=== PATIENT | female | born 1985 | race Two or more races ===

== ENCOUNTER 2016-10-15 09:11 | Emergency (ER) | payer MEDICAID ==
[~2016-10-15] VITALS: Ht 157.5 cm; Wt 49.9 kg
[2016-10-15 10:01] VITALS: BP 104/65
== END 2016-10-15 10:30 | disposition home or self-care (01) ==
LOC: ER 09:11
DX: S39.012A Strain of muscle, fascia and tendon of lower back, initial encounter (principal); X58.XXXA Exposure to other specified factors, initial encounter; Y93.89 Activity, other specified; Y99.9 Unspecified external cause status; Y92.89 Other specified places as the place of occurrence of the external cause
CPT/HCPCS: 81025; 99283; J7030

== ENCOUNTER 2018-12-08 16:52 | Emergency (ER) | payer MEDICAID ==
[~2018-12-08] VITALS: Ht 157.5 cm; Wt 54.4 kg
[2018-12-08 17:03] VITALS: BP 114/68
[2018-12-08 17:34] LABS: Urine Bacteria NONE SEEN /hpf (None Seen); Urine Blood 1+ /uL (Negative); Urine Mucus FEW (None Seen); Urine Specific Gravity 1.023 (1.001-1.035); Urine WBC <1 /hpf (0 - 5)
[2018-12-08 17:58] LABS: Basophils # (auto) 0.1 uL; Basophils % (auto) 0.7 % (0.0-2.0); Eosinophils # (auto) 0.3 uL; Eosinophils % (auto) 4.5 % (0.0-7.0); Hematocrit 37.1 % (36.0-46.0); Hemoglobin 12.1 g/dL (12.2-16.2); Lymphocytes # (auto) 2.3 uL; Mean Corpuscular Hemoglobin 28.3 pg (28.0-32.0); Mean Corpuscular Hgb Conc. 32.6 g/dL (32.0-36.0); Mean Corpuscular Volume 86.9 fL (80.0-100.0); Monocytes # (auto) 0.6 uL; Monocytes % (auto) 8.6 % (0.0-12.0); Neutrophils # (auto) 4.1 uL; Neutrophils % (auto) 55.2 % (37.0-80.0); Nucleated Red Blood Cells % 0.1 %; Platelet Count (auto) 322 10^3/uL (140-450); Red Blood Cells 4.27 10^6/uL (4.0-5.20); Red Cell Distribution Width 13.9 % (11.8-14.3); White Blood Cell 7.4 10^3/uL (4.4-10.8)
[2018-12-08 18:14] LABS: Albumin 3.4 g/dL (3.4-5.0); BUN/Creatinine Ratio 18.8; Calcium 8.6 mg/dL (8.5-10.1); Magnesium 2.2 mg/dL (1.6-2.6); Potassium 3.9 mmol/L (3.5-5.1)
[2018-12-08 18:17] LABS: Bilirubin, Total 0.2 mg/dL (0.2-1.0); Total Protein 7.3 g/dL (6.4-8.2)
== END 2018-12-09 04:27 | disposition home or self-care (01) ==
LOC: ER 16:52
DX: K58.9 Irritable bowel syndrome, unspecified (principal); K30 Functional dyspepsia
CPT/HCPCS: 36415; 74176; 80053; 81001; 81025; 82150; 83690; 83735; 85025

== ENCOUNTER 2025-09-19 09:45 | Inpatient (IN) | payer MEDICAID ==
[~2025-09-19] VITALS: Ht 157.5 cm; Wt 65.6 kg
--- NOTE | 2025-09-19 10:18 | ECG ---
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
--- NOTE | 2025-09-19 10:27 | ED.PDOC ---
HPI Comments 40-year-old female who presents to the ED with a chief complaint of chest pain onset 1 week. Patient has been experiencing intermittent chest pain for the past week as well as palpitations, LT arm pain, BLE pain, dizziness, nausea, vomiting, shortness of breath. Since this morning around 06:00, chest pain as been constant, described as pressure sensation as well as LT arm pain. Denies headache, fever, chills, fall, injury from a blurred vision, diarrhea, abdominal pain, dysuria, hematuria, recent travel. No other symptoms or modifying factors present at this time. Chief Complaint: Chest Pain Time Seen by MD: 10:10 Primary Care Provider: N/A Reviewed Notes: Medications, Allergies Allergies: Coded Allergies: NO KNOWN ALLERGIES (Unverified , 10/15/16) Information Source: Patient Mode of Arrival: Ambulatory Severity: Moderate Timing: Weeks Duration: Intermittent Prehospital treatment: None Location: Chest (L) Radiation: Arm (L) Quality: Pressure Onset: At Rest Cardiac Risk Factors: None PE Risk Factors: None History of: None Modifying Factors: Nothing Associated Signs and Symptoms: SOB, Palpitations Past Medical History PAST MEDICAL HISTORY: Asthma Surgical History: Hernia Repair DEMAND PLANNER History: No Pertinent DEMAND PLANNER History Family History Family History: Unknown Social History Smoker: Non-Smoker Alcohol: Denies ETOH Use Drugs: Denies Drug Use Lives In: Home Constitutional: denies: chills, diaphoresis, fatigue, fever, malaise, sweats, weakness, others EENTM: denies: blurred vision, double vision, ear bleeding, ear discharge, ear drainage, ear pain, ear ringing, eye pain, eye redness, hearing loss, mouth pain, mouth swelling, nasal discharge, nose bleeding, nose congestion, nose pain, photophobia, tearing, throat pain, throat swelling, voice changes, others Respiratory: reports: shortness of breath; denies: cough, hemoptysis, orthopnea, SOB at rest, SOB with excertion, stridor, wheezing, others Cardiovascular: reports: chest pain, palpitations; denies: dizzy spells, diaphoresis, Dyspnea on exertion, edema, irregular heart beat, left arm pain, lightheadedness, PND, syncope, others Gastrointestinal: denies: abdomen distended, abdominal pain, blood streaked bowels, constipated, diarrhea, dysphagia, difficulty swallowing, hematemesis, melena, nausea, poor appetite, poor fluid intake, rectal bleeding, rectal pain, vomiting, others Genitourinary: denies: abnormal vagina bleeding, burning, dyspareunia, dysuria, flank pain, frequency, hematuria, incontinence, pain, , vagina discharge, urgency, others Neurological: reports: dizziness; denies: fainting, headache, left sided numbness, left sided weakness, numbness, paresthesia, pre-existing deficit, right sided numbness, right sided weakness, seizure, speech problems, tingling, tremors, weakness, others Musculoskeletal: reports: others (BLE pain, LT arm pain); denies: back pain, gout, joint pain, joint swelling, muscle pain, muscle stiffness, neck pain Integumetry: denies: bruises, change in color, change in hair/nails, dryness, laceration, lesions, lumps, rash, wounds, others Allergic/Immunocompromised: denies: Difficulty Healing, Frequent Infections, Hives, Itching, others Hematologic/Lymphatic: denies: anemia, blood clots, easy bleeding, easy bruising, swollen glands, others Endocrine: denies: excessive hunger, excessive sweating, excessive thirst, excessive urination, flushing, intolerance to cold, intolerance to heat, unexplained weight gain, unexplained weight loss, others Psychiatric: denies: anxiety, bipolar disorder, depression, hopeless, panic disorder, schizophrenia, sleepless, suicidal, others All Other Systems: Reviewed and Negative Physical Exam General Appearance: No Apparent Distress, Normal HEENT: Normal ENT Inspection, Pharynx Normal, TMs Normal Neck: Full Range of Motion, Non-Tender, Normal, Normal Inspection Respiratory: Chest Non-Tender, Lungs Clear, No Accessory Muscle Use, No Respiratory Distress, Normal Breath Sounds Cardiovascular: No Edema, No JVD, No Murmur, No Gallop, Normal Peripheral Pulses, Regular Rate/Rhythm Breast Exam: Deferred Gastrointestinal: No Organomegaly, Non Tender, No Pulsatile Mass, Normal Bowel Sounds, Soft Genitalia: Deferred Pelvic: Deferred Rectal: Deferred Extremities: No calf tenderness, Normal capillary refill, Normal inspection, Normal range of motion, Non-tender, No pedal edema Musculoskeletal : Apperance: Normal Neurologic: Alert, handtools repairer II-XII nml as Tested, No Motor Deficits, Normal Affect, Normal Mood, No Sensory Deficits Cerebellar Function: Normal Reflexes: Normal Skin: Dry, Normal Color, Warm Lymphatic: No Adenopathy Was a procedure done? Was a procedure done?: No CP Differential Dx Differential Diagnosis: MAT, MA Differential Diagnosis: HTN Essential, HTN Accelerated Differential Diagnosis: Gastritis, Myocardial Infarction X-Ray, Labs, Meds, VS Vital Signs Date Time Temp Pulse Resp B/P (MAP) Pulse Ox O2 Delivery O2 Flow Rate FiO2 09/19/25 13:04 64 09/19/25 12:18 98.6 63 16 116/81 (93) 100 98.6 09/19/25 11:14 69 16 100 Room Air 09/19/25 11:14 98.7 69 16 116/54 (74) 100 98.7 09/19/25 11:08 98.2 09/19/25 10:54 64 09/19/25 09:47 98.1 91 18 137/97 100 98.1 Lab Test 09/19/25 11:20 09/19/25 11:11 09/19/25 10:33 Range/Units Troponin I High Sensitivity < 3 L < 3 L </=34 ng/L Urine Color Yellow Yellow Urine Clarity Clear Clear Urine pH 5.5 5.0-9.0 Urine Specific [place] 1.027 1.001-1.035 Urine Protein Trace H Negative Urine Ketones Negative Negative Urine Blood Negative Negative /uL Urine Nitrite Negative Negative Urine Bilirubin Negative Negative Urine Urobilinogen Normal Negative mg/dL Urine Leukocyte Esterase Negative Negative /uL Urine RBC <1 0 - 4 /hpf Urine Microscopic WBC 1 0-5 /HPF Urine Squamous Epithelial Cells Few <5 /hpf Urine Bacteria None seen None Seen /hpf Urine Mucus Moderate None Seen Urine Glucose Normal Normal mg/dL Urine Test Negative Negative White Blood Count 6.0 4.4-10.8 10^3/uL Red Blood Count 4.22 4.0-5.20 10^6/uL Hemoglobin 8.5 L 12.2-16.2 g/dL Hematocrit 27.8 L 36.0-46.0 % Mean Corpuscular Volume 65.9 L 80.0-100.0 fL Mean Corpuscular Hemoglobin 20.2 L 28.0-32.0 pg Mean Corpuscular Hemoglobin Concent 30.6 L 32.0-36.0 g/dL Red Cell Distribution Width 18.1 H 11.8-14.3 % Platelet Count 494 H 140-450 10^3/uL Mean Platelet Volume 6.9 6.9-10.8 fL Neutrophils (%) (Auto) 55.1 37.0-80.0 % Lymphocytes (%) (Auto) 35.7 10.0-50.0 % Monocytes (%) (Auto) 6.6 0.0-12.0 % Eosinophils (%) (Auto) 1.5 0.0-7.0 % Basophils (%) (Auto) 1.1 0.0-2.0 % Neutrophils # (Auto) 3.3 1.6-8.6 10 ^3/uL Lymphocytes # (Auto) 2.1 0.4-5.4 10 ^3/uL Monocytes # (Auto) 0.4 0-1.3 10 ^3/uL Eosinophils # (Auto) 0.1 0-0.8 10 ^3/uL Basophils # (Auto) 0.1 0-0.2 10 ^3/uL Nucleated Red Blood Cells 0.0 % Sodium Level 142 136-145 mmol/L Potassium Level 3.9 3.5-5.1 mmol/L Chloride Level 106 98-107 mmol/L Carbon Dioxide Level 25 20-31 mmol/L Anion Gap 11 5-15 Blood Urea Nitrogen 10 9-23 mg/dL Creatinine 0.80 0.550-1.02 mg/dL Glomerular Filtration Rate Calc 95 >90 mL/min BUN/Creatinine Ratio 12.5 10.0-20.0 Serum Glucose 95 74-106 mg/dL Calcium Level 8.9 8.7-10.4 mg/dL Current Medications Medications (Trade) Dose Ordered Sig/Ronen Route Start Time Stop Time Status Last Admin Al Hydrox/Mg Hydrox/Simethicone (Maalox Plus) 15 ml ONCE ONCE PO 09/19/25 10:15 09/19/25 10:17 DC 09/19/25 11:07 Ondansetron HCl (Zofran Po) 4 mg ONCE ONCE PO 09/19/25 10:15 09/19/25 10:17 DC 09/19/25 11:09 Acetaminophen (Tylenol Tablet) 650 mg ONCE ONCE PO 09/19/25 10:15 09/19/25 10:17 DC 09/19/25 11:08 Time of 1ST Reevaluation: 10:40 Reevaluation 1ST: Unchanged Patient Education/Counseling: Diagnosis, Treatment, Prognosis Family Education/Counseling: No Family Present SEPSIS Sepsis Screen Date sepsis recognized/suspect: Sep 19, 2025 Time Sepsis recognized/suspect: 948 Recent Procedure: No On Antibiotic Therapy: No Respiratory Rate >20: No Heart Rate >90: Yes Temp<36 C (96.8 F) or >38.3 C: No SBP <90 or MAP <65 mmHG: No New Acute Mental Status Change: No Is the patient on CPAP, BIPAP,: No Physician Orders Chest Portable (09/19/25 10:15) Electrocardigram (09/19/25 13:15) Vital Signs Date Time Temp Pulse Resp B/P (MAP) Pulse Ox O2 Delivery O2 Flow Rate FiO2 09/19/25 13:04 64 09/19/25 12:18 98.6 63 16 116/81 (93) 100 98.6 09/19/25 11:14 69 16 100 Room Air 09/19/25 11:14 98.7 69 16 116/54 (74) 100 98.7 09/19/25 11:08 98.2 09/19/25 10:54 64 09/19/25 09:47 98.1 91 18 137/97 100 98.1 Laboratory Tests Test 09/19/25 10:33 White Blood Count 6.0 10^3/uL (4.4-10.8) Medications Medications Dose Ordered Sig/Ronen Route Start Time Stop Time Status Last Admin Dose Admin Acetaminophen 650 mg ONCE ONCE PO 09/19/25 10:15 09/19/25 10:17 DC 09/19/25 11:08 Al Hydrox/Mg Hydrox/Simethicone 15 ml ONCE ONCE PO 09/19/25 10:15 09/19/25 10:17 DC 09/19/25 11:07 Ondansetron HCl 4 mg ONCE ONCE PO 09/19/25 10:15 09/19/25 10:17 DC 09/19/25 11:09 Departure 1 Departure Time of Disposition: 13:30 (Patient with worsening chest pain likely secondary to severe anemia. Patient also with near-syncope. We will admit patient for further workup and expert consultation) Impression: Primary Impression: Acute chest pain Additional Impressions: Near syncope Symptomatic anemia Disposition: ADMITTED INPATIENT Admit to: Tele Condition: Guarded Critical Care Note Critical Care Time?: No Stability Stability form required: No Heart Score Heart Score: Heart Score Response (Comments) Value History N/A 0 EKG N/A 0 Age N/A 0 Risk Factors N/A 0 Troponin N/A 0 Total 0 I personally scribed for AMA BELLO MD ([email or web address]) on 09/19/25 at 10:27. Electronically submitted by Franci Kinney ([email or web address]). AMA BELLO MD Sep 19, 2025 10:27
[2025-09-19 10:48] LABS: Hemoglobin 8.5 g/dL (12.2-16.2)
[2025-09-19 10:50] LABS: Hematocrit 27.8 % (36.0-46.0); Mean Corpuscular Hemoglobin 20.2 pg (28.0-32.0); Mean Corpuscular Volume 65.9 fL (80.0-100.0); Nucleated Red Blood Cells % 0.0 %
[2025-09-19 10:54] LABS: Chloride 106 mmol/L (98-107); Potassium 3.9 mmol/L (3.5-5.1); Sodium 142 mmol/L (136-145)
[2025-09-19 10:55] LABS: Anion Gap 11 (5-15); Calcium 8.9 mg/dL (8.7-10.4); Carbon Dioxide 25 mmol/L (20-31)
--- NOTE | 2025-09-19 10:55 | ECG ---
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
[2025-09-19 11:00] LABS: BUN/Creatinine Ratio 12.5 (10.0-20.0); Blood Urea Nitrogen 10 mg/dL (9-23); Glucose 95 mg/dL (74-106)
[2025-09-19] MEDS: MAALOX PLUS or MAALOX 30 ML PO ONE ×2 (11:07→15:00)
[2025-09-19] MEDS: ACETAMINOPHEN 325 MG TAB PO ONE (11:08)
[2025-09-19] MEDS: ONDANSETRON ODT 4 MG TAB PO ONE (11:09)
[2025-09-19 12:06] LABS: Urine Protein, UAD TRACE (Negative)
--- NOTE | 2025-09-19 12:43 | DVH ---
CHEST RADIOGRAPH INDICATION: cp TECHNIQUE: Single frontal view of the chest was obtained COMPARISON: None FINDINGS: Lines and Tubes: None Lungs: No focal consolidation. Pleura: No effusion. No pneumothorax. Cardiomediastinal contours: Unremarkable Bones: No acute osseous abnormality. IMPRESSION: 1. No acute cardiopulmonary disease.
--- NOTE | 2025-09-19 13:56 | DVHHPRES ---
History of Present Illness Resident Creating Document: JN CAVANAUGH RESIDENT History of Present Illness Ivory Mcneill, a 40-year-old female with a history of Asthma, GERD /PUD presents to the ED with constant left-sided chest pressure since this morning following a week of intermittent chest pain, palpitations, left arm pain, bilateral leg pain, dizziness, nausea, vomiting, and shortness of breath, without headache, fever, chills, abdominal or urinary symptoms, recent travel, or modifying factors. PMHx: Asthma, GERD /PUD PSHx: inguinal Hernia Repair Family history: Noncontributory to the admission. Social history: nonsmoker, non alcoholic, now on recreational drugs, comes from home. OBGYN: No Pertinent CLINICAL AUDIOLOGIST History , actively menstruating. Review of Systems Constitutional: Yes: Chills; No: Fever, Sweats, Weakness, Malaise, Other Eyes: No: Pain, Vision change, Conjunctivae inflammation, Eyelid inflammation, Other, Redness ENT: No: Ear pain, Ear discharge, Nose pain, Nose discharge, Nose congestion, Mouth pain, Mouth swelling, Throat pain, Throat swelling, Other Respiratory: Pleuritic Pain; No: Cough, Dry, Shortness of breath, SOB with excertion, Wheezing, Hemoptysis, Sputum, Wheezing, Other Cardiovascular: Chest Pain, Palpitations; No: Orthopnea, Paroxysmal Noc. Dyspnea, Edema, Lt Headedness, Other Gastrointestinal: No: Nausea, Vomiting, Abdominal Pain, Diarrhea, Constipation, Melena, Hematochezia, Other Genitourinary: No Dysuria, No Frequency, No Incontinence, No Hematuria, No Retention, No Other Musculoskeletal: arm pain; No: other, neck pain, shoulder pain, back pain, hand pain, leg pain, foot pain Skin: No: Rash, Lesions, Jaundice, Bruising, Other Neurological: No: Weakness, Numbness, Incoordination, Change in speech, Conf usion, Seizures, Other Allergies: Coded Allergies: NO KNOWN ALLERGIES (Unverified , 10/15/16) Exam Vital Signs Vital Signs Date Time Temp Pulse Resp B/P (MAP) Pulse Ox O2 Delivery O2 Flow Rate FiO2 09/19/25 13:33 98.6 68 17 118/82 (94) 100 98.6 09/19/25 11:14 Room Air General Appearance: Alert, Oriented X3, Cooperative, mild distress HEENT: Atraumatic, PERRLA, EOMI, Mucous membr. moist/pink, Other (piercing, multiple tattos. ) Respiratory: Clear to auscultation, Normal air movement, Other (NON reproduciple pain in the intercostals. ) Cardiovascular: Regular rate, Normal S1, Normal S2, No murmurs Abdominal: Normal bowel sounds, Soft, No tenderness, No hepatospenomegaly, No masses Extremities: No clubbing, No cyanosis, No edema, Normal pulses, No tenderness/swelling Skin: No rashes, No breakdown, No significant lesion Neuro: Normal gait, Normal speech, Strength at 5/5 X4 ext, Normal tone, Sensation intact, Cranial nerves 3-12 NL, Reflexes 2+ Psych/Mental Status: Mental status NL, Mood NL Labs/Xrays Labs Test 09/19/25 11:20 09/19/25 11:11 09/19/25 10:33 Range/Units Troponin I High Sensitivity < 3 L </=34 ng/L Urine Color Yellow Yellow Urine Clarity Clear Clear Urine pH 5.5 5.0-9.0 Urine Specific [place] 1.027 1.001-1.035 Urine Protein Trace H Negative Urine Ketones Negative Negative Urine Blood Negative Negative /uL Urine Nitrite Negative Negative Urine Bilirubin Negative Negative Urine Urobilinogen Normal Negative mg/dL Urine Leukocyte Esterase Negative Negative /uL Urine RBC <1 0 - 4 /hpf Urine Microscopic WBC 1 0-5 /HPF Urine Squamous Epithelial Cells Few <5 /hpf Urine Bacteria None seen None Seen /hpf Urine Mucus Moderate None Seen Urine Glucose Normal Normal mg/dL Urine Test Negative Negative White Blood Count 6.0 4.4-10.8 10^3/uL Red Blood Count 4.22 4.0-5.20 10^6/uL Hemoglobin 8.5 L 12.2-16.2 g/dL Hematocrit 27.8 L 36.0-46.0 % Mean Corpuscular Volume 65.9 L 80.0-100.0 fL Mean Corpuscular Hemoglobin 20.2 L 28.0-32.0 pg Mean Corpuscular Hemoglobin Concent 30.6 L 32.0-36.0 g/dL Red Cell Distribution Width 18.1 H 11.8-14.3 % Platelet Count 494 H 140-450 10^3/uL Mean Platelet Volume 6.9 6.9-10.8 fL Neutrophils (%) (Auto) 55.1 37.0-80.0 % Lymphocytes (%) (Auto) 35.7 10.0-50.0 % Monocytes (%) (Auto) 6.6 0.0-12.0 % Eosinophils (%) (Auto) 1.5 0.0-7.0 % Basophils (%) (Auto) 1.1 0.0-2.0 % Neutrophils # (Auto) 3.3 1.6-8.6 10 ^3/uL Lymphocytes # (Auto) 2.1 0.4-5.4 10 ^3/uL Monocytes # (Auto) 0.4 0-1.3 10 ^3/uL Eosinophils # (Auto) 0.1 0-0.8 10 ^3/uL Basophils # (Auto) 0.1 0-0.2 10 ^3/uL Nucleated Red Blood Cells 0.0 % Sodium Level 142 136-145 mmol/L Potassium Level 3.9 3.5-5.1 mmol/L Chloride Level 106 98-107 mmol/L Carbon Dioxide Level 25 20-31 mmol/L Anion Gap 11 5-15 Blood Urea Nitrogen 10 9-23 mg/dL Creatinine 0.80 0.550-1.02 mg/dL Glomerular Filtration Rate Calc 95 >90 mL/min BUN/Creatinine Ratio 12.5 10.0-20.0 Serum Glucose 95 74-106 mg/dL Calcium Level 8.9 8.7-10.4 mg/dL SEPSIS Sepsis Screen Date sepsis recognized/suspect: Sep 19, 2025 Time Sepsis recognized/suspect: 948 Recent Procedure: No On Antibiotic Therapy: No Respiratory Rate >20: No Heart Rate >90: Yes Temp<36 C (96.8 F) or >38.3 C: No SBP <90 or MAP <65 mmHG: No New Acute Mental Status Change: No Is the patient on CPAP, BIPAP,: No Physician Orders Chest Portable (09/19/25 10:15) Electrocardigram (09/19/25 13:15) Admit (09/19/25 13:50) Allergies (09/19/25 13:50) Code Status (09/19/25 13:50) Hydrocodone-Acet 5/325mg Tab ([place] 5/32 (09/19/25 14:00) Ondansetron Hcl (Zofran) (09/19/25 14:00) Docusate Sodium Capsule (Colace Capsule) (09/19/25 14:00) Complete Blood Count (09/20/25 04:00) Comprehensive Metabolic Panel (09/20/25 04:00) Cardiac Diet-2gna,Lofat,Lochol (09/19/25 Dinner) Echo 2d Mode Cardiac Dop (09/19/25 13:50) Condition: Serious (09/19/25 13:50) Acetaminophen Tablet (Tylenol Tablet) (09/19/25 14:00) Morphine Sulfate Injection (09/19/25 14:00) Lovenox 40mg (09/19/25 14:00) Nitroglycerin Sublingual (Ntrostat Subli (09/19/25 14:00) Morphine Sulfate Injection (09/19/25 14:00) Oxygen By Nasal Cannula (09/19/25 13:50) Stat Ekg For Chest Pain (09/19/25 13:50) Notify Md Of Changes From Base (09/19/25 13:50) Law Researcher For 24 Hours (09/19/25 13:50) Emergency Dysrhythmia Protocol (09/19/25 13:50) Rhythm Strips Once Every Shift (09/19/25 13:50) Vital Signs Date Time Temp Pulse Resp B/P (MAP) Pulse Ox O2 Delivery O2 Flow Rate FiO2 09/19/25 13:33 98.6 68 17 118/82 (94) 100 98.6 09/19/25 13:04 64 09/19/25 12:18 98.6 63 16 116/81 (93) 100 98.6 09/19/25 11:14 69 16 100 Room Air 09/19/25 11:14 98.7 69 16 116/54 (74) 100 98.7 09/19/25 11:08 98.2 09/19/25 10:54 64 09/19/25 09:47 98.1 91 18 137/97 100 98.1 Laboratory Tests Test 09/19/25 10:33 White Blood Count 6.0 10^3/uL (4.4-10.8) Medications Medications Dose Ordered Sig/Ronen Route Start Time Stop Time Status Last Admin Dose Admin Acetaminophen 650 mg ONCE ONCE PO 09/19/25 10:15 12/16/25 10:17 DC 09/19/25 11:08 650 MG Al Hydrox/Mg Hydrox/Simethicone 15 ml ONCE ONCE PO 09/19/25 10:15 09/19/25 10:17 DC 09/19/25 11:07 15 ML Ondansetron HCl 4 mg ONCE ONCE PO 09/19/25 10:15 09/19/25 10:17 DC 09/19/25 11:09 4 MG Assessment/Plan Assessment/Plan #Acute onset of chest pain: Possible unstable angina, rule out ACS, telemetry, echo, troponin trending, EKG for changes, Check TSH, BNP. EKG for acute ST-T changes, ESR CRP, ruled out structural versus vascular abnormality. Check UDS. Differential arm blood pressure to rule out dissection. #Asthma: Breathing comfortably on room air, as needed albuterol, viral panel to check. Unlikely in exacerbation. #GERD/PUD: BUN normal, no abdominal tenderness, continue IV PPI along with oral antacids, very well discharge pain could be esophagitis. Avoid caustic/spicy food, lifestyle modification. #Questionable blood loss anemia: Baseline hemoglobin 11-12, presented with a 8.5, possible blood loss with menstruation versus GI blood loss. Further workup needed. Ruled out . #Microcytic anemia: MCV 65.9, RDW 18.1 likely pointing towards chronic iron-d eficiency anemia: Iron panel /ferritin to check. Replenish as needed. Diet: cardiac diet PUD prophylaxis: protonix 40mg IV daily DVT prophylaxis: SCDs Barriers to discharge: Medical diagnosis and management in progress. Patient lives with self / family. Independent/need supportive device/wheelchair/person support for ADL. PT and SW consult as needed. PCP: Grady/ Caleb/Hui Specialist Relevant To Admission: None at the moment. Case discussed with Dr. Ward. Code Status: Full Code. Discussion Regarding goals of care and care plan needed total 27 minutes bedside. Plan discussed with: Patient My Orders Orders - JN CAVANAUGH RESIDENT Procedure Category Date Status Time Admit ADMIT 09/19/25 Verified 13:50 Allergies MARIANA 09/19/25 Verified 13:50 Code Status CODE 09/19/25 Verified 13:50 Hydrocodone-Acet PHA 09/19/25 Verified 5/325mg Tab ([place] 14:00 Ondansetron Hcl PHA 09/19/25 Verified (Zofran) 14:00 Docusate Sodium PHA 09/19/25 Verified Capsule (Colace 14:00 Complete Blood Count LAB 09/20/25 Verified 04:00 Comprehensive LAB 09/20/25 Verified Metabolic Panel 04:00 Cardiac DIET 09/19/25 Verified Diet-2gna,Lofat,Lochol Dinner Echo 2d Mode Cardiac US 09/19/25 Verified DOP 13:50 Condition: Serious MARIANA 09/19/25 Verified 13:50 Acetaminophen Tablet [facility] 09/19/25 Verified (Tylenol Tablet) 14:00 Morphine Sulfate PHA 09/19/25 Verified Injection 14:00 Lovenox 40mg PHA 09/19/25 Verified 14:00 Nitroglycerin [facility] 09/19/25 Verified Sublingual (Ntrostat 14:00 Morphine Sulfate [facility] 09/19/25 Verified Injection 14:00 Oxygen By Nasal RT 09/19/25 Verified Cannula 13:50 Stat Ekg For Chest [facility] 09/19/25 Verified Pain 13:50 Notify Of Changes [facility] 09/19/25 Verified From Base 13:50 Law Researcher For [facility] 09/19/25 Verified 24 Hours 13:50 Emergency Dysrhythmia [facility] 09/19/25 Verified Protocol 13:50 Rhythm Strips Once [facility] 09/19/25 Verified Every Shift 13:50 Date of Service: Sep 19, 2025 Billing Provider: FAVIOLA WARD MD Common Visit Codes: 75388-DRLCMDG INP/OBS CARE (HIGH) Secondary Visit Codes: 10837-[id number] CARE PLAN 30 MINUTES JN CAVANAUGH RESIDENT Sep 19, 2025 13:56
[2025-09-19] MEDS ORDERED: DOCUSATE SOD 100 MG CAP PO PRN (14:00)
[2025-09-19] MEDS ORDERED: NITROGLYCERIN 0.4 MG SL TAB SL PRN (14:00)
[2025-09-19] MEDS ORDERED: HYDROcodone-ACET 5/325MG TAB PO PRN (14:00)
[2025-09-19] MEDS ORDERED: MORPHINE SULFATE 4 MG/ML SYR/VIAL IV PRN ×2 (14:00)
[2025-09-19] MEDS ORDERED: ONDANSETRON HCL 4 MG/2 ML VIAL IV PRN (14:00)
[2025-09-19 14:21] VITALS: BP 110/79; PULSE 68; RESP 18; TEMP 98.1; O2SAT 100
[2025-09-19] MEDS ORDERED: ALBUTEROL SULF 2.5 MG/0.5ML(0.5%) NEB SOLN NEB PRN (15:00)
[2025-09-19] MEDS ORDERED: MAALOX PLUS or MAALOX 30 ML PO PRN (15:00)
[2025-09-19] MEDS: ENOXAPARIN SOD 40 MG/0.4 ML SYRINGE SC SCH (15:03)
[2025-09-19] MEDS ORDERED: OMEP1CAP70 PO (15:23)
[2025-09-19 15:29] VITALS: O2SAT 100
[2025-09-19 15:30] VITALS: BP 118/82; PULSE 68; RESP 17; TEMP 98.6; O2SAT 100
[2025-09-19 16:19] LABS: Iron 19.0 ug/dL (50-170)
[2025-09-19 16:19] LABS: Alanine Aminotransferase 12 U/L (7-40); Albumin 4.4 g/dL (3.2-4.8); Alkaline Phosphatase 86 U/L (46-116); Bilirubin, Direct < 0.1 mg/dL (<0.3); Bilirubin, Total 0.3 mg/dL (0.2-1.0); Total Protein 7.1 g/dL (5.7-8.2)
[2025-09-19 16:21] LABS: Total Iron Binding Capacity 441.0 ug/dL (250-425)
[2025-09-19 16:29] LABS: Lipase 50 U/L (12-53)
[2025-09-19 16:45] LABS: Thyroid Stimulating Hormone 1.34 uIU/mL (0.55-4.78)
[2025-09-19 16:46] LABS: Beta HCG, Quantitative 0.8 mIU/mL (1.5-4.2)
[2025-09-19 17:16] LABS: COVID19 ANTIGEN SOFIA FIA NEGATIVE (NEGATIVE)
[2025-09-19 19:01] VITALS: O2SAT 100
[2025-09-19 20:00] VITALS: PULSE 79; RESP 18; O2SAT 99
[2025-09-19 21:00] VITALS: BP 105/68; PULSE 70; RESP 18; TEMP 97; O2SAT 99
[2025-09-19 22:03] LABS: Amphetamine Screen, Urine Neg (NEGATIVE); Barbiturate Scree,Urine Neg (NEGATIVE); Benzodiazephine Screen, Urine Neg (NEGATIVE); Cannabinoid Screen, Urine Neg (NEGATIVE); Cocaine Screen, Urine Neg (NEGATIVE); Opiate Scree,Urine Neg (NEGATIVE); Phencyclidine Screen, Urine Neg (NEGATIVE)
[2025-09-20] VITALS (10 sets, daily range): BP systolic 91–112; BP diastolic 52–74; PULSE 56–89; RESP 16–18; TEMP 97.7–98.3; O2SAT 96–100
[2025-09-20] MEDS: ACETAMINOPHEN 325 MG TAB PO PRN (04:39)
[2025-09-20 06:51] LABS: Hemoglobin 8.0 g/dL (12.2-16.2); Nucleated Red Blood Cells % 0.1 %
[2025-09-20 06:53] LABS: Hematocrit 25.6 % (36.0-46.0); Mean Corpuscular Hemoglobin 20.5 pg (28.0-32.0); Mean Corpuscular Volume 65.5 fL (80.0-100.0)
[2025-09-20 07:16] LABS: Albumin 3.8 g/dL (3.2-4.8); Alkaline Phosphatase 78 U/L (46-116); Anion Gap 10 (5-15); BUN/Creatinine Ratio 12.5 (10.0-20.0); Blood Urea Nitrogen 10 mg/dL (9-23); Calcium 8.9 mg/dL (8.7-10.4); Carbon Dioxide 24 mmol/L (20-31); Glucose 96 mg/dL (74-106); Potassium 4.3 mmol/L (3.5-5.1); Sodium 141 mmol/L (136-145); Total Protein 6.3 g/dL (5.7-8.2)
[2025-09-20 07:17] LABS: Alanine Aminotransferase < 9 U/L (7-40); Bilirubin, Total 0.3 mg/dL (0.2-1.0); Chloride 107 mmol/L (98-107)
[2025-09-20] MEDS: IRON SUCROSE COMPLEX 110 ML IV SCH (09:16)
[2025-09-20] MEDS: PANTOPRAZOLE 40 MG/10 ML VIAL INJ IV SCH (09:16)
[2025-09-20] MEDS: LACTULOSE 20Gm/30ML SOLN PO ONE ×2 (11:54→15:47)
--- NOTE | 2025-09-20 12:49 | ECG ---
[facility] Test Date: 2025-09-19 Test Time: 13:04:18 Pat Name: CHOCO NEFF Department: Room: 0293T B Gender: F State Pilot: LUISA : 1985 Requested By: AMA BELLO Order Number: [id number] Reading MD: Kwasi Gaffney Measurements Intervals [place] Rate: 64 P: 15 [place]: 174 QRS: 85 QRSD: 79 T: 65 QT: 393 QTc: 406 Interpretive Statements Sinus rhythm Electronically Signed On 09-21-2025 17:19:32 PST by Kwasi Gaffney Please click the below link to view image of tracing.
[2025-09-20 13:52] LABS: Hepatitis B Surface Antigen Negative (Negative)
[2025-09-20 14:14] LABS: Hepatitis C Antibody Negative (Negative)
--- NOTE | 2025-09-20 16:17 | DVHPNRES ---
Progress Note Date Seen: Sep 20, 2025 Resident Creating Document: CIERRA CUTLER RESIDENT Medical Necessity Reason Pt with a Central, PICC or Fol: No Subjective Review of Systems Patient is 40 years old female with a past medical history of asthma, GERD, PUD came with a complaint of chest pain and shortness of breaths. As per patient he has been having intermittent chest pain, central, 4 to 5/10, radiating to the left arm, associated with some shortness of breaths. Patient reported heavy menstruation with the 3rd day of her period. Patient reported she had endoscopy 1 year before and was treated for H pylori infection, patient also reported had colonoscopy and biopsy was removed but could not give us details. Patient denied any fever, cough, diarrhea, acute joint redness or swelling. EKG sinus rhythm no acute ST-T wave changes, troponin I with a normal limit, hemoglobin 8.5> 8.0, MCV 65, RDW 18.1, iron 19, ferritin 3.9, negative for acute hepatitis panel, negative for COVID and flu. Urinalysis negative for UTI. Chest x-ray no acute abnormality. PMH- asthma, GERD, PUD PSH- inguinal hernia repair Allergy- NKDA Personal History/ Social History- denies smoking/alcoholism/drug abuse, lives with the family ROS Cardiovascular- chest pain, shortness of breath Respiratory shortness of breaths Gastrointestinal- denies any rectal bleeding, nausea or vomiting Musculoskeletal-denies acute joint swelling or tenderness or redness Neurological- denies acute dysarthria, dysphagia, change in vision Psychiatry- denies depression or SI or HI Skin- denies acute rash or purpura Patient was seen today at bedside Labs and chart reviewed Patient was on IV iron supplement today for severe anemia with the iron- deficiency Switched to oral iron supplement from tomorrow With Patient's consent Digital rectal examination was done in presence of joselyn Mosher, no external or internal hemorrhoids noted, no anal fissure, no mass noted Pending stool for occult blood test Pending echo 2D report Objective vital signs Vital Sign Date Time Temp Pulse Resp B/P (MAP) Pulse Ox O2 Delivery O2 Flow Rate FiO2 09/20/25 13:00 98.3 56 18 99/66 (77) 97 98.3 09/20/25 08:00 Room Air* 0 21 Total Intake and Output 09/19/25 09/19/2525 15:00 23:00 07:00 Intake Total 240 ml Balance 240 ml medications Current Medications Medications Dose Ordered Sig/Ronen Route Start Time Stop Time Status Last Admin Dose Admin Acetaminophen/ Hydrocodone Bitart 1 tab Q4HP PRN PO 09/19/25 14:00 Ondansetron HCl 4 mg Q4HP PRN IV 09/19/25 14:00 Docusate Sodium 100 mg BIDPRN PRN PO 09/19/25 14:00 Acetaminophen 650 mg Q6HP PRN PO 09/19/25 14:00 09/20/25 04:39 650 MG Morphine Sulfate 2 mg Q4HPRN PRN IV 09/19/25 14:00 Nitroglycerin 0.4 mg Q5MINP PRN SL 09/19/25 14:00 Morphine Sulfate 2 mg Q30M PRN IV 09/19/25 14:00 Albuterol 2.5 mg Q6HPRN PRN NEB 09/19/25 15:00 Pantoprazole Sodium 40 mg DAILY IV 09/20/25 10:00 09/20/25 09:16 40 MG Al Hydrox/Mg Hydrox/Simethicone 15 ml Q8HP PRN PO 09/19/25 15:00 Ferrous Sulfate 325 mg EOD PO 09/22/25 10:00 Sucralfate 1 gm BID@0600,2200 PO 09/20/25 22:00 UNV Examination General examination- not in acute distress HEENT- PEERLA, no acute nasal discharge Cardiovascular- S1-S2 audible, rate and rhythm regular, no murmur Respiratory- CTAB, no wheeze or rhonchi Gastrointestinal-nontender, bowel sound+. Nondistended Musculoskeletal-no acute joint swelling or tenderness or redness Lower extremity- no leg edema Neurological- cranial nerves intact, no acute dysarthria or dysphagia Psychiatry- denies depression or SI or HI Skin- no acute rash or purpura With Patient's consent Digital rectal examination was done in presence of joselyn Mosher, no external or internal hemorrhoids noted, no anal fissure, no mass noted laboratory and microbiology Laboratory Tests 09/20/25 05:55 Test 09/20/25 05:55 Range/Units Serum Glucose 96 74-106 mg/dL Problem List/Assessment/Plan Problem List/Assessment/Plan # acute chest pain likely due to GERD # acute chest pain rule out acute coronary syndrome -EKG no acute ST-T wave changes -troponin I with a normal limit -pending echo 2D -continue pantoprazole as prescribed Monitor vitals # [id number]-[id number] microcytic iron-deficiency anemia likely from menorrhagia -pending stool occult blood test -patient on iron supplement # asthma no acute exacerbation -nebulization PRN # PUD -continue pantoprazole as prescribed Goals of care, Code status full code ; discussed with >15 minutes PUD prophylaxis: Pantoprazole DVT prophylaxis: Patient ambulating Plan discussed with Dr. Nicole, nursing staff, Total time spent on patient evaluation, chart review, assessment and plan, discussion discussion >35 minutes Plan discussed with: Patient, Other (RN) My Orders My Orders Orders - CIERRA CUTLER Procedure Category Date Status Time Ferrous Sulfate Tablet PHA 09/22/25 In Process 10:00 Visit Coding STANDARD RES Billing Provider: JEWEL HUNT MD Date of Service if different f: Sep 20, 2025 Common Visit Codes: 51421-[id number] INP/OBS CARE(HIGH) CIERRA CUTLER Sep 20, 2025 16:17
[2025-09-20] MEDS: SUCRALFATE 1 GM/10 ML ORAL SUSP PO ONE (17:47)
[2025-09-20] MEDS: SUCRALFATE 1 GM/10 ML ORAL SUSP PO SCH (21:28)
[2025-09-21 01:00] VITALS: BP 110/66; PULSE 70; RESP 17; TEMP 98.7; O2SAT 100
[2025-09-21 05:00] VITALS: BP 113/76; PULSE 68; RESP 17; TEMP 98.8; O2SAT 99
[2025-09-21 07:17] LABS: Anion Gap 11 (5-15); Carbon Dioxide 22 mmol/L (20-31); Chloride 107 mmol/L (98-107); Potassium 4.3 mmol/L (3.5-5.1); Sodium 140 mmol/L (136-145)
[2025-09-21 07:18] LABS: Calcium 8.9 mg/dL (8.7-10.4)
[2025-09-21 07:22] LABS: Glucose 90 mg/dL (74-106); Hematocrit 26.9 % (36.0-46.0); Hemoglobin 8.2 g/dL (12.2-16.2); Mean Corpuscular Hemoglobin 20.2 pg (28.0-32.0); Mean Corpuscular Volume 66.2 fL (80.0-100.0); Nucleated Red Blood Cells % 0.1 %
[2025-09-21 07:23] LABS: BUN/Creatinine Ratio 6.8 (10.0-20.0); Magnesium 2.3 mg/dL (1.6-2.6)
[2025-09-21 07:27] LABS: Blood Urea Nitrogen 5 mg/dL (9-23)
[2025-09-21 08:00] VITALS: PULSE 56
[2025-09-21] MEDS: PANTOPRAZOLE 40 MG/10 ML VIAL INJ IV ONE (08:08)
[2025-09-21 08:34] VITALS: O2SAT 99
[2025-09-21 09:00] VITALS: BP 112/71; PULSE 60; RESP 16; TEMP 98.5; O2SAT 98
--- NOTE | 2025-09-21 11:57 | DVHDSRES ---
Discharge Summary Date of Admission Resident Creating Document: CIERRA CUTLER RESIDENT Sep 19, 2025 at 13:50 Date of Discharge: Sep 21, 2025 Admitting Diagnosis Acute chest pain likely due to ACS Labs/Diagnostic Data: Laboratory Results Test 09/21/25 06:10 09/20/25 18:55 09/20/25 05:55 09/19/25 15:42 White Blood Count 6.5 10^3/uL (4.4-10.8) Red Blood Count 4.07 10^6/uL (4.0-5.20) Hemoglobin 8.2 g/dL (12.2-16.2) Hematocrit 26.9 % (36.0-46.0) Mean Corpuscular Volume 66.2 fL (80.0-100.0) Mean Corpuscular Hemoglobin 20.2 pg (28.0-32.0) Mean Corpuscular Hemoglobin Concent 30.6 g/dL (32.0-36.0) Red Cell Distribution Width 18.4 % (11.8-14.3) Platelet Count 429 10^3/uL (140-450) Mean Platelet Volume 7.5 fL (6.9-10.8) Neutrophils (%) (Auto) 50.6 % (37.0-80.0) Lymphocytes (%) (Auto) 36.8 % (10.0-50.0) Monocytes (%) (Auto) 8.2 % (0.0-12.0) Eosinophils (%) (Auto) 2.9 % (0.0-7.0) Basophils (%) (Auto) 1.5 % (0.0-2.0) Neutrophils # (Auto) 3.3 10 ^3/uL (1.6-8.6) Lymphocytes # (Auto) 2.4 10 ^3/uL (0.4-5.4) Monocytes # (Auto) 0.5 10 ^3/uL (0-1.3) Eosinophils # (Auto) 0.2 10 ^3/uL (0-0.8) Basophils # (Auto) 0.1 10 ^3/uL (0-0.2) Nucleated Red Blood Cells 0.1 % Sodium Level 140 mmol/L (136-145) Potassium Level 4.3 mmol/L (3.5-5.1) Chloride Level 107 mmol/L (98-107) Carbon Dioxide Level 22 mmol/L (20-31) Anion Gap 11 (5-15) Blood Urea Nitrogen 5 mg/dL (9-23) Creatinine 0.73 mg/dL (0.550-1.02) Glomerular Filtration Rate Calc 106 mL/min (>90) BUN/Creatinine Ratio 6.8 (10.0-20.0) Serum Glucose 90 mg/dL (74-106) Calcium Level 8.9 mg/dL (8.7-10.4) Magnesium Level 2.3 mg/dL (1.6-2.6) Stool Occult Blood Negative (Negative) Stool Occult Blood Sample #3 (Negative) Total Bilirubin 0.3 mg/dL (0.2-1.0) Aspartate Amino Transferase (AST) 13 U/L (13-40) Alanine Aminotransferase (ALT) < 9 U/L (7-40) Alkaline Phosphatase 78 U/L (46-116) Total Protein 6.3 g/dL (5.7-8.2) Albumin 3.8 g/dL (3.2-4.8) Hepatitis A IgM Antibody Negative Hepatitis B Surface Antigen Negative (Negative) Hepatitis B Core IgM Antibody Negative (Negative) Hepatitis C Antibody Negative (Negative) Influenza Type A Antigen Negative (Negative) Influenza Type B Antigen Negative (Negative) SARS-CoV-2 Antigen (Rapid) Negative (NEGATIVE) Test 09/19/25 11:20 09/19/25 11:11 09/19/25 10:33 Iron Level 19 ug/dL (50-170) Total Iron Binding Capacity 441 ug/dL (250-425) Percent Iron Saturation 4.3 % (15-50) Ferritin 3.9 ng/mL (10-291) Troponin I High Sensitivity < 3 ng/L (</=34) Urine Color Yellow (Yellow) Urine Clarity Clear (Clear) Urine pH 5.5 (5.0-9.0) Urine Specific Salters 1.027 (1.001-1.035) Urine Protein Trace (Negative) Urine Ketones Negative (Negative) Urine Blood Negative /uL (Negative) Urine Nitrite Negative (Negative) Urine Bilirubin Negative (Negative) Urine Urobilinogen Normal mg/dL (Negative) Urine Leukocyte Esterase Negative /uL (Negative) Urine RBC <1 /hpf (0 - 4) Urine Microscopic WBC 1 /HPF (0-5) Urine Squamous Epithelial Cells Few /hpf (<5) Urine Bacteria None seen /hpf (None Seen) Urine Mucus Moderate (None Seen) Urine Glucose Normal mg/dL (Normal) Urine Test Negative (Negative) Urine Opiates Screen Neg (NEGATIVE) Urine Fentanyl Screen Neg (NEGATIVE) Urine Barbiturates Screen Neg (NEGATIVE) Urine Phencyclidine Screen Neg (NEGATIVE) Urine Amphetamines Screen Neg (NEGATIVE) Urine Benzodiazepines Screen Neg (NEGATIVE) Urine Cocaine Screen Neg (NEGATIVE) Urine Cannabinoids Screen Neg (NEGATIVE) Erythrocyte Sedimentation Rate 10 mm/hr (0-20) Direct Bilirubin < 0.1 mg/dL (<0.3) C-Reactive Protein High Sensitivity 0.04 mg/dL (<1.0) B-Type Natriuretic Peptide 4.22 pg/mL (0-100) Lipase 50 U/L (12-53) Thyroid Stimulating Hormone (TSH) 1.34 uIU/mL (0.55-4.78) Beta HCG, Quantitative 0.8 mIU/mL (1.5-4.2) Plasma/Serum Blood Alcohol < 3.0 mg/dL (<10) Other Laboratory Tests 09/21/25 06:10 Brief Hx & Hospital Course: Patient is 40 years old female with a past medical history of asthma, GERD, PUD came with a complaint of chest pain and shortness of breaths. As per patient he has been having intermittent chest pain, central, 4 to 5/10, radiating to the left arm, associated with some shortness of breaths. Patient reported heavy menstruation with the 3rd day of her period. Patient reported she had endoscopy 1 year before and was treated for H pylori infection, patient also reported had colonoscopy and biopsy was removed but could not give us details. Patient denied any fever, cough, diarrhea, acute joint redness or swelling. EKG sinus rhythm no acute ST-T wave changes, troponin I with a normal limit, hemoglobin 8.5> 8.0, MCV 65, RDW 18.1, iron 19, ferritin 3.9, negative for acute hepatitis panel, negative for COVID and flu. Urinalysis negative for UTI. Chest x-ray no acute abnormality. Brief hospital course-during hospital course patient was treated conservatively, patient had chest wall tenderness positive, had iron supplement for iron- deficiency anemia, hemoglobin stable on follow up. Symptoms improved with the pantoprazole and sucralfate for possible GERD. Patient is being discharged with the pantoprazole, sucralfate, iron supplement. 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 Patient was hemodynamically stable on discharge. All questions answered. P/E General examination- not in acute distress HEENT- PEERLA, no acute nasal discharge Cardiovascular- chest wall tenderness positive, S1-S2 audible, rate and rhythm regular, no murmur Respiratory- CTAB, no wheeze or rhonchi Gastrointestinal-nontender, bowel sound+. Nondistended Musculoskeletal-no acute joint swelling or tenderness or redness Lower extremity- no leg edema Neurological- cranial nerves intact, no acute dysarthria or dysphagia Psychiatry- denies depression or SI or HI Skin- no acute rash or purpura With Patient's consent Digital rectal examination was done in presence of joselyn Mosher, no external or internal hemorrhoids noted, no anal fissure, no mass noted Assessment # acute chest pain likely due to costochondritis # GERD # acute chest pain ruled out acute coronary syndrome # [id number] microcytic iron-deficiency anemia likely from menorrhagia # asthma no acute exacerbation # PUD # menorrhagia Plan Continue pantoprazole as prescribed Continue sucralfate Continue iron supplement as prescribed Follow up at [facility]/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/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 Pleura: No effusion. No pneumothorax. Cardiomediastinal contours: Unremarkable Bones: No acute osseous abnormality. IMPRESSION: 1. No acute cardiopulmonary disease. ATED BY: VERONA BANSAL Jr., DO DICTATED DATE/TIME: 09/19/251240 SIGNED BY: VERONA BANSAL Jr., SIGNED DATE/TIME: 09/19/251240 CC: Condition at Discharge: Stable Final Diagnosis/Problems List # acute chest pain likely due to costochondritis # GERD # acute chest pain ruled out acute coronary syndrome # ktvbkzqc-[id number] microcytic iron-deficiency anemia likely from menorrhagia # asthma no acute exacerbation # PUD Discharge Disposition: Home Discharge Instruct/Medications Diet: Regular Activity: No Restrictions, As Tolerated Follow Up/Referral: DC PCP Gastroenterology Gynecology Medications: As above Scheduled Esomeprazole Magnesium Trihydr (Nexium), 1 CAP PO DAILY Ferrous Sulfate (Ferrous Sulfate), 325 MG PO every other day Omeprazole (Omeprazole Dr), 1 CAP PO DAILY, (Reported) Sucralfate (Carafate), 1 GM PO BID Discharge Statement: "Patient was advised to return to the ER or call 911 if any headaches, dizziness, shortness of breath, chest pain, abdominal pain, bleeding, fevers, or worsening of medical condition. Patient was counseled about treatment plan, medications, possible side effects, patientverbalized understanding. All questions were answered to the best of my ability. This discharge took greater then 30 minutes in planning, reviewing documentation, counseling the patient, and discussing with other team members." ASSESSMENT ASSESSMENT Assessment Acute chest pain likely due to acute costochondritis GERD Symptomatic kaobjjed-tw-ihloiq anemia Visit Coding STANDARD RES Billing Provider: JEWEL HUNT MD Date of Service if different f: Sep 21, 2025 Common Visit Codes: 05715-PZH/OBS DISCH DAY >30min CIERRA CUTLER RESIDENT Sep 21, 2025 11:57
[2025-09-21] MEDS ORDERED: ESOM40CA39 PO (12:33)
[2025-09-21] MEDS ORDERED: FER325T PO (12:33)
[2025-09-21] MEDS ORDERED: SUCR1TAB31 PO (12:33)
[2025-09-21 13:00] VITALS: BP 92/55; PULSE 74; RESP 18; TEMP 98.4; O2SAT 99
--- NOTE | 2025-09-22 08:50 | DVHSR ---
APPROVED REPORT EXAM: Two-dimensional and M-mode echocardiogram with Doppler and color Doppler. Blood Pressure: 109/67 mmHg INDICATION Chest Pain RISK FACTORS Height: 5'2", Weight: 142 DIMENSIONS LVDd 4.2 (3.8-5.7cm) LA (2D) 4.2 (1.9-4.0cm) Aortic Root 2.7 (2.0-3.7cm) LVDs 2.9 (2.5-4.0cm) LA (MM) (1.9-4.0cm) Aortic Cusp Exc 2.0 (1.5-2.0cm) EF (%) 60.0 (55-70%) Rt. Atrium 3.2 (1.9-4.0cm) Asc. Aorta 2.5 cm IVSd 0.7 (0.7-1.1cm) RV (D) (1.8-2.4cm) PWd 0.7 (0.7-1.1cm) Mitral Valve Mitral Mitral Stenosis E wave 0.90m/s MV Mean GR. mmHg A wave 0.81m/s MV Peak GR. mmHg E/A ratio 1.1 2D MVA cm2 DECEL Time 219ms PRESS 1/2 Time ms Aortic Valve Aortic Valve Aortic Stenosis V1 1.16m/s AO Mean GR. 3mmHg V2 1.20m/s AO Peak GR. 6mmHg LVOT Diameter 2.1 (1.8-2.4cm) Doppler JUNIOR 3.35cm2 Pulmonic Valve V2 0.90m/s Other Information Quality : Technically Limited Rhythm : Technically limited study due to body habitus. Conclusion LVEF 55-60% normal Right ventricle size and function normal
[2025-09-22] MEDS ORDERED: FERROUS SULFATE 325mg EC TAB PO SCH (10:00)
== END 2025-09-21 14:40 | disposition home or self-care (01) | DRG 203 ==
LOC: ER 09:45 → OVERFLOW 13:50 → TELE-WESTW 17:23
PROVIDERS: ADMIT Student in an Organized Health Care Education/Training Program; ATTEND Student in an Organized Health Care Education/Training Program
DX: M94.0 Chondrocostal junction syndrome [Tietze] (principal); D50.9 Iron deficiency anemia, unspecified; J45.909 Unspecified asthma, uncomplicated; K27.9 Peptic ulcer, site unspecified, unspecified as acute or chronic, without hemorrhage or perforation; Z20.822 Contact with and (suspected) exposure to COVID-19; K21.9 Gastro-esophageal reflux disease without esophagitis; N92.0 Excessive and frequent menstruation with regular cycle
CPT/HCPCS: 36415; 71045; 80048; 80053; 80074; 80076; 80307; 80320; 81001; 81025; 82270; 82728; 83540; 83550; 83690; 83735; 83880; 84443; 84484; 84702; 85025; 85652; 86141; 87426; 87804; 93005; 93306; G0378; J1756; J2470; Q0162